=== PATIENT | female | born 1965 | race Caucasian/White ===

== ENCOUNTER 2020-10-26 14:26 | Day surgery (SDC) | payer MEDICARE ==
[2020-10-26] MEDS ORDERED: LIDOCAINE HCL 2% 100 MG/5 ML IJ ONE (14:27)
[2020-10-26] MEDS ORDERED: DIPRIVAN 200 MG/20 ML IV ONE (15:30)
[2020-10-26] MEDS ORDERED: Lactated Ringers 1,000 ML IV ONE (15:49)
--- NOTE | 2020-10-26 16:39 | XRAY ---
Indication: Bilateral L4-S1 MBB. Intraoperative fluoroscopy provided for 8 seconds. Single digital spot image submitted for interpretation demonstrates posterior needle tips projecting over the expected left and right L4-S1 nerve roots. Correlate with intraoperative findings/report.
--- NOTE | 2020-10-26 16:53 | XRAY ---
8 seconds of fluoroscopy was used in surgery for a bilateral L4-S1 MBB.
== END 2020-10-26 15:55 | disposition home or self-care (01) ==
LOC: SDC-PAIN 14:26
PROVIDERS: ATTEND Psychiatry & Neurology Pain Medicine
DX: M47.816 Spondylosis without myelopathy or radiculopathy, lumbar region (principal); Z79.899 Other long term (current) drug therapy
CPT/HCPCS: 64493; 64494; 72020; 77002; J2704